=== PATIENT | female | born 1980 | race Caucasian/White ===

== ENCOUNTER 2017-01-10 18:01 | Inpatient (IN) | payer OTHER ==
[~2017-01-10] VITALS: Ht 157.5 cm; Wt 72.8 kg
--- NOTE | ~2017-01-10 | ST ---
[place], [place] EXERCISE STRESS TEST REPORT NAME: [facility]EN [id number] UNIT #: [id number] ROOM: 522 DOCTOR: MARELY LEE,PEEWEE BIRTHDATE: [birth year] DOS: 01/11/2017 TREADMILL STRESS TEST REFERRING PHYSICIAN: Dr. Galan. INDICATION: Central chest pain and bradycardia. The patient underwent standard Michael protocol stress testing. The patient's baseline EKG is sinus bradycardia with heart rate of 43 with blood pressure at rest of 118/70. The patient achieved a maximum heart rate of 169 with blood pressure of 156/71. The maximum heart rate of 169 represents 93% of maximum predicted. The patient exercised for total of 9 minutes on the treadmill. The patient had no new chest pain (she had atypical reproducible chest pain onset of exam.) The patient had no ischemic changes on the EKG nor did she have arrhythmia. SUMMARY OF FINDINGS: 1. Negative exercise treadmill stress. 2. Ellis Treadmill score of 9 portending a low risk prognosis. 3. Appropriate chronotropic competence for conduction of system. PEEWEE YAP MD CM:STRESS:EXERCISE STRESS TEST REPORT [id number] PEEWEE AYP MD
[~2017-01-10 18:01] MED LIST: ANAPROX DS550 MG PO; ANUSOL-HC25 MG RC; AUGMENTIN 875 M1 TAB PO; B COMPLETE1 EACH PO; B12100 MC1 PO; CLINDAMYCIN HC300 MG PO; CLINDAMYCIN150 MG PO; COMPAZINE10 MG PO; CYCLOBENZAPRINE10 MG PO; IBU800 MG PO; MACROBID100 M1 PO; MEDROL DOSEPAK4 MG PO; MOTRIN800 MG PO; MULTIVITAMIN FO1 CAP PO; Motrin,Rufen800 MG PO; PERCOCET 325 MG1 TA7 PO; PREDNISONE10 MG PO; PRILOSEC20 MG PO; PROZAC20 MG PO; TESSALON PERLE200 MG PO; THE MEDICINE S400 IU PO; VICODIN 5/500 505 MG PO; VIT D; VITAMIN D34000 UNIT PO; ZITHROMAX Z PA250 MG PO; ZOFRAN ODT4 MG SL
[2017-01-10 18:10] VITALS: BP 102/46
[2017-01-10 18:17] LABS: BASO % 0.4 % (0.0-1.0); EOS # 0.2 10*3/uL (0.0-0.4); EOS % 3.4 % (1.0-4.0); HEMOGLOBIN 11.3 g/dl (12.0-16.0); LYMPH # 2.1 10*3/uL (1.3-4.4); LYMPH % 43.2 % (27.0-41.0); MEAN CELL VOLUME 92.2 fl (81.0-99.0); MEAN CORPUSCULAR HGB 31.6 pg (27.0-31.0); MEAN CORPUSCULAR HGB CONC 34.2 g/dl (33.0-37.0); MEAN PLATELET VOLUME 11.9 fl (9.6-12.3); MONO # 0.4 10*3/uL (0.1-1.0); MONO % 8.8 % (3.0-9.0); NEUT # 2.1 10*3/uL (2.3-7.9); NEUT % 44.2 % (47.0-73.0); PLATELET COUNT AUTOMATED 133 10*3/uL (130-400); RED BLOOD COUNT 3.58 10*6/uL (4.10-5.10); RED CELL DISTRI WIDTH 11.9 % (0-14.5); WHITE BLOOD COUNT 4.8 10*3/uL (4.8-10.8)
[2017-01-10 18:34] LABS: ALBUMIN 3.5 gm/dl (3.1-4.5); ALKALINE PHOSPHATASE 48 U/L (45-117); BILIRUBIN, TOTAL 0.2 mg/dl (0.2-1.0); BUN 7 mg/dl (7-24); CARBON DIOXIDE 29 mmol/L (21-32); CHLORIDE 106 mmol/L (98-107); EST GLOM FILT AFRICAN AMERICAN > 60 ml/min; GLUCOSE 79 mg/dL (65-99); MAGNESIUM 1.9 mg/dL (1.5-2.1); POTASSIUM 3.8 mmol/L (3.5-5.1); SGOT/AST 12 IU/L (3-35); SGPT/ALT 17 U/L (12-78); SODIUM 138 mmol/L (136-145); TOTAL PROTEIN 6.6 gm/dL (6.4-8.2)
[2017-01-10 18:35] LABS: TROPONIN I < 0.015 ng/ml (<0.045)
[2017-01-10 19:00] VITALS: BP 97/60
[2017-01-10 19:30] VITALS: BP 92/65
[2017-01-10 20:30] VITALS: BP 94/44
[2017-01-10 21:30] VITALS: BP 108/69
[2017-01-11] VITALS (7 sets, daily range): BP systolic 90–110; BP diastolic 50–65
[2017-01-11 00:29] LABS: CKMB 0.6 ng/ml (0.5-3.6); CPK 57 U/L (26-192); TROPONIN I < 0.015 ng/ml (<0.045)
[2017-01-11 06:10] LABS: BASO % 0.5 % (0.0-1.0); EOS # 0.2 10*3/uL (0.0-0.4); EOS % 4.2 % (1.0-4.0); HEMATOCRIT 34.8 % (37.0-47.0); HEMOGLOBIN 11.6 g/dl (12.0-16.0); LYMPH # 1.8 10*3/uL (1.3-4.4); LYMPH % 46.9 % (27.0-41.0); MEAN CELL VOLUME 93.8 fl (81.0-99.0); MEAN CORPUSCULAR HGB 31.3 pg (27.0-31.0); MEAN CORPUSCULAR HGB CONC 33.3 g/dl (33.0-37.0); MEAN PLATELET VOLUME 11.8 fl (9.6-12.3); MONO # 0.4 10*3/uL (0.1-1.0); MONO % 9.1 % (3.0-9.0); NEUT # 1.5 10*3/uL (2.3-7.9); PLATELET COUNT AUTOMATED 121 10*3/uL (130-400); RED BLOOD COUNT 3.71 10*6/uL (4.10-5.10); RED CELL DISTRI WIDTH 11.9 % (0-14.5); WHITE BLOOD COUNT 3.8 10*3/uL (4.8-10.8)
[2017-01-11 06:17] LABS: CKMB 0.8 ng/ml (0.5-3.6); CPK 56 U/L (26-192)
[2017-01-11 06:21] LABS: TROPONIN I < 0.015 ng/ml (<0.045)
[2017-01-11 06:30] LABS: HEMOGLOBIN A1c 4.7 % (4.8-5.6)
[2017-01-11 06:38] LABS: BUN 7 mg/dl (7-24); CARBON DIOXIDE 28 mmol/L (21-32); CHLORIDE 109 mmol/L (98-107); CHOLESTEROL 156 mg/dL (<200); EST GLOM FILT AFRICAN AMERICAN > 60 ml/min; FREE T4 1.12 ng/dl (0.76-1.46); GLUCOSE 87 mg/dL (65-99); HDL CHOLESTEROL 61 mg/dl (40-60); LDL CHOLESTEROL 83 mg/dL (9-159); MAGNESIUM 1.8 mg/dL (1.5-2.1); PHOSPHOROUS 3.1 mg/dL (2.5-4.9); POTASSIUM 3.8 mmol/L (3.5-5.1); SODIUM 140 mmol/L (136-145); TRIGLYCERIDES 60 mg/dl (<150); VLDL CHOLESTEROL 12 mg/dL (6-40)
[2017-01-11 06:40] LABS: PROTHROMBIN TIME 10.7 SECONDS (9.0-12.4)
[2017-01-11 07:43] LABS: FOLIC ACID 14.13 ng/mL (>5.38)
[2017-01-11 12:26] LABS: CPK 58 U/L (26-192)
[2017-01-11 12:27] LABS: CKMB 0.8 ng/ml (0.5-3.6); TROPONIN I < 0.015 ng/ml (<0.045)
[2017-01-12] VITALS: BP 90/54
[2017-01-12 06:59] LABS: BASO % 0.5 % (0.0-1.0); EOS # 0.2 10*3/uL (0.0-0.4); EOS % 4.4 % (1.0-4.0); HEMATOCRIT 34.4 % (37.0-47.0); HEMOGLOBIN 11.5 g/dl (12.0-16.0); LYMPH # 1.5 10*3/uL (1.3-4.4); MEAN CELL VOLUME 93.2 fl (81.0-99.0); MEAN CORPUSCULAR HGB 31.2 pg (27.0-31.0); MEAN CORPUSCULAR HGB CONC 33.4 g/dl (33.0-37.0); MEAN PLATELET VOLUME 12.5 fl (9.6-12.3); MONO # 0.3 10*3/uL (0.1-1.0); MONO % 7.9 % (3.0-9.0); NEUT # 1.7 10*3/uL (2.3-7.9); NEUT % 44.9 % (47.0-73.0); PLATELET COUNT AUTOMATED 117 10*3/uL (130-400); RED BLOOD COUNT 3.69 10*6/uL (4.10-5.10); RED CELL DISTRI WIDTH 11.9 % (0-14.5); WHITE BLOOD COUNT 3.7 10*3/uL (4.8-10.8)
[2017-01-12 07:33] LABS: ALBUMIN 3.2 gm/dl (3.1-4.5); BILIRUBIN, TOTAL 0.2 mg/dl (0.2-1.0); BUN 7 mg/dl (7-24); CARBON DIOXIDE 25 mmol/L (21-32); CHLORIDE 110 mmol/L (98-107); EST GLOM FILT AFRICAN AMERICAN > 60 ml/min; GLUCOSE 83 mg/dL (65-99); POTASSIUM 3.7 mmol/L (3.5-5.1); SGOT/AST 12 IU/L (3-35); SGPT/ALT 21 U/L (12-78); SODIUM 140 mmol/L (136-145); TOTAL PROTEIN 6.1 gm/dL (6.4-8.2)
[2017-01-12 07:34] LABS: ALKALINE PHOSPHATASE 42 U/L (45-117)
[2017-01-12 08:00] VITALS: BP 102/52; BP 104/66
[2017-01-12 12:00] VITALS: BP 101/59
[2017-01-12] MEDS ORDERED: PANTOPRAZOLE SO40 MG PO (14:42)
[2017-01-12 16:00] VITALS: BP 101/57
== END 2017-01-12 18:21 | disposition home or self-care (01) | DRG 392 ==
LOC: ED 18:01 → EDHOLD 19:53 → 5E 19:53
PROVIDERS: Emergency Medicine; Family Medicine; Internal Medicine Hospice and Palliative Medicine
PROC: 4A02XM4 Measurement of Cardiac Total Activity, External Approach (ICD-10-PCS; principal; 2017-01-11)
DX: K21.9 Gastro-esophageal reflux disease without esophagitis (principal); D61.818 Other pancytopenia; I95.9 Hypotension, unspecified; E44.0 Moderate protein-calorie malnutrition; E83.51 Hypocalcemia; R00.1 Bradycardia, unspecified; D64.9 Anemia, unspecified; E55.9 Vitamin D deficiency, unspecified; Z83.3 Family history of diabetes mellitus; Z82.49 Family history of ischemic heart disease and other diseases of the circulatory system; Z88.8 Allergy status to other drugs, medicaments and biological substances; Z68.25 Body mass index [BMI] 25.0-25.9, adult; F41.9 Anxiety disorder, unspecified

== ENCOUNTER 2017-09-29 13:17 | Emergency (ER) | payer OTHER ==
[~2017-09-29] VITALS: Ht 157.4 cm; Wt 71.7 kg
--- NOTE | ~2017-09-29 | EKG ---
[place], [place] ELECTROCARDIOGRAM REPORT NAME: GIGI NGUYEN UNIT #: [id number] ROOM: DOCTOR: MEENAKSHI LEE,ALICIA BIRTHDATE: [birth year] DOS: 09/29/2017 TIME: 1353. IMPRESSION: 1. Sinus rhythm with sinus arrhythmia. 2. Nonspecific ST-T changes. 3. Normal QT interval. ALICIA ARRIETA MD CM:EKGRPT:ELECTROCARDIOGRAM REPORT [id number] ALICIA ARRIETA MD
[~2017-09-29 13:17] MED LIST changes: +PANTOPRAZOLE SO40 MG PO
[2017-09-29 13:32] VITALS: BP 126/78
[2017-09-29] MEDS ORDERED: DIFLUCAN150 MG PO (15:01)
[2017-09-29] MEDS ORDERED: ROBITUSSIN DM 105 ML PO (15:21)
[2017-09-29] MEDS ORDERED: AUGMENTIN 875875 MG PO (15:21)
== END 2017-09-29 18:49 | disposition home or self-care (01) ==
LOC: ED 13:17
DX: J01.90 Acute sinusitis, unspecified (principal); Z90.89 Acquired absence of other organs; Z88.6 Allergy status to analgesic agent

== ENCOUNTER 2018-11-07 06:59 | Emergency (ER) | payer SELFPAY ==
[~2018-11-07] VITALS: Ht 160 cm; Wt 76.2 kg
[~2018-11-07 06:59] MED LIST changes: +AUGMENTIN 875875 MG PO; +DIFLUCAN150 MG PO; +PRILOSEC20 M1 PO; +ROBITUSSIN DM 105 ML PO; +ZYRTEC10 MG PO; +Zofran4 MG PO
[2018-11-07 07:00] VITALS: BP 129/77
[2018-11-07] MEDS ORDERED: TAMIFLU 75MG CA75 MG PO (08:08)
[2018-11-07] MEDS ORDERED: PROVENTIL HFA6.7 GM INH (18:46)
== END 2018-11-07 07:58 | disposition home or self-care (01) ==
LOC: ED 06:59
DX: J10.1 Influenza due to other identified influenza virus with other respiratory manifestations (principal); Z88.8 Allergy status to other drugs, medicaments and biological substances

== ENCOUNTER 2018-11-07 16:22 | Emergency (ER) | payer SELFPAY ==
[~2018-11-07] VITALS: Ht 157.4 cm; Wt 76.2 kg
--- NOTE | ~2018-11-07 | EKG ---
[place], [place] ELECTROCARDIOGRAM REPORT NAME: GIGI NGUYEN UNIT #: [id number] ROOM: DOCTOR: EPIPHANY DRAFT REPORT BIRTHDATE: [birth year] [facility] Test Date: 2018-11-07 Test Time: 17:01:23 Pat Name: GIGI NGUYEN Department: Room: Gender: F Gang Miner: : 1980 Requested By: JOSUE RICH DNP Order Number: [id number] Reading MD: Measurements Intervals Blessing Rate: 74 P: 60 NC: 166 QRS: 59 QRSD: 79 T: 30 QT: 370 QTc: 411 Interpretive Statements Sinus rhythm Borderline T abnormalities, anterior leads Baseline wander in lead(s) V1 No previous ECG available for comparison CM:EKGRPT:ELECTROCARDIOGRAM REPORT 1701 1402 [facility] JOSUE RICH DNP
[~2018-11-07 16:22] MED LIST changes: +TAMIFLU 75MG CA75 MG PO
[2018-11-07 16:24] VITALS: BP 127/80
[2018-11-07 17:18] LABS: BASO % 0.5 % (0.0-1.0); EOS # 0.2 10*3/uL (0.0-0.4); EOS % 3.8 % (1.0-4.0); HEMOGLOBIN 13.1 g/dl (12.0-16.0); LYMPH # 1.2 10*3/uL (1.3-4.4); MEAN CELL VOLUME 92.9 fl (81.0-99.0); MEAN CORPUSCULAR HGB 31.2 pg (27.0-31.0); MEAN CORPUSCULAR HGB CONC 33.6 g/dl (33.0-37.0); MEAN PLATELET VOLUME 10.8 fl (9.6-12.3); MONO # 0.4 10*3/uL (0.1-1.0); MONO % 10.3 % (3.0-9.0); NEUT # 2.5 10*3/uL (2.3-7.9); NEUT % 58.2 % (47.0-73.0); PLATELET COUNT AUTOMATED 106 10*3/uL (130-400); RED CELL DISTRI WIDTH 11.8 % (0-14.5); WHITE BLOOD COUNT 4.3 10*3/uL (4.8-10.8)
[2018-11-07 17:40] LABS: ALBUMIN 3.5 gm/dl (3.1-4.5); ALKALINE PHOSPHATASE 68 U/L (45-117); BUN 7 mg/dl (7-24); CHLORIDE 105 mmol/L (98-107); CREATININE 0.74 mg/dL (0.55-1.02); POTASSIUM 3.5 mmol/L (3.5-5.1); SGOT/AST 21 IU/L (3-35); SGPT/ALT 39 U/L (12-78); SODIUM 141 mmol/L (136-145); TOTAL PROTEIN 7.1 gm/dL (6.4-8.2)
[2018-11-07] MEDS ORDERED: PROVENTIL HFA6.7 GM INH (18:46)
== END 2018-11-07 18:45 | disposition home or self-care (01) ==
LOC: ED 16:22
PROVIDERS: Nurse Practitioner Family
DX: R06.02 Shortness of breath (principal); T37.5X5A Adverse effect of antiviral drugs, initial encounter; R53.81 Other malaise; Z88.8 Allergy status to other drugs, medicaments and biological substances; Y92.89 Other specified places as the place of occurrence of the external cause

== ENCOUNTER 2020-03-22 09:59 | Emergency (ER) | payer SELFPAY ==
[~2020-03-22] VITALS: Ht 157.4 cm; Wt 67.1 kg
[~2020-03-22 09:59] MED LIST changes: +PROVENTIL HFA6.7 GM INH
[2020-03-22 10:04] VITALS: BP 102/71
[2020-03-22 10:35] LABS: CLARITY SL CLOUDY (CLEAR); COLOR YELLOW (YELLOW); GLUCOSE NEGATIVE (NEGATIVE)
[2020-03-22 10:36] LABS: BILIRUBIN 1+ (NEGATIVE); BLOOD 1+ (NEGATIVE); KETONE 3+ (NEGATIVE); LEUKO ESTERASE 1+ (NEGATIVE); NITRITE NEGATIVE (NEGATIVE); UROBILINOGEN 0.2 E.U./dl (0.2-1.0)
[2020-03-22 10:39] LABS: EOS % 0.3 % (1.0-4.0); LYMPH # 0.8 10*3/uL (1.3-4.4); LYMPH % 26.3 % (27.0-41.0); MEAN CELL VOLUME 93.9 fl (81.0-99.0); MEAN CORPUSCULAR HGB 30.8 pg (27.0-31.0); MEAN CORPUSCULAR HGB CONC 32.8 g/dl (33.0-37.0); MEAN PLATELET VOLUME 12.4 fl (9.6-12.3); MONO # 0.4 10*3/uL (0.1-1.0); MONO % 14.9 % (3.0-9.0); NEUT # 1.7 10*3/uL (2.3-7.9); NEUT % 58.5 % (47.0-73.0); PLATELET COUNT AUTOMATED 62 10*3/uL (130-400); RED BLOOD COUNT 4.26 10*6/uL (4.10-5.10); RED CELL DISTRI WIDTH 11.9 % (0-14.5); WHITE BLOOD COUNT 2.9 10*3/uL (4.8-10.8)
[2020-03-22 10:52] LABS: ALBUMIN 3.7 gm/dl (3.1-4.5); ALKALINE PHOSPHATASE 46 U/L (45-117); BUN 4 mg/dl (7-24); CHLORIDE 109 mmol/L (98-107); CREATININE 0.69 mg/dL (0.55-1.02); POTASSIUM 3.7 mmol/L (3.5-5.1); SGOT/AST 19 IU/L (3-35); SGPT/ALT 24 U/L (12-78); SODIUM 139 mmol/L (136-145); TOTAL PROTEIN 6.8 gm/dL (6.4-8.2)
[2020-03-22 10:56] LABS: BACTERIA 2+; EPITHELIAL CELLS 16-20; MUCOUS TRACE
[2020-03-22] MEDS ORDERED: KEFLEX500 M1 PO (12:35)
== END 2020-03-22 12:51 | disposition home or self-care (01) ==
LOC: ED 09:59
PROVIDERS: Nurse Practitioner
DX: N39.0 Urinary tract infection, site not specified (principal); B34.9 Viral infection, unspecified; Z88.8 Allergy status to other drugs, medicaments and biological substances; Z79.899 Other long term (current) drug therapy; Z20.828 Contact with and (suspected) exposure to other viral communicable diseases

== ENCOUNTER 2021-03-30 16:46 | Emergency (ER) | payer SELFPAY ==
[~2021-03-30] VITALS: Ht 160 cm; Wt 59.0 kg
[~2021-03-30 16:46] MED LIST changes: +KEFLEX500 M1 PO
[2021-03-30 16:51] VITALS: BP 123/72
[2021-03-30 17:43] LABS: BASO % 0.3 % (0.0-1.0); EOS # 0.1 10*3/uL (0.0-0.4); EOS % 1.5 % (1.0-4.0); LYMPH # 1.8 10*3/uL (1.3-4.4); LYMPH % 26.7 % (27.0-41.0); MEAN CELL VOLUME 95.4 fl (81.0-99.0); MEAN CORPUSCULAR HGB 31.5 pg (27.0-31.0); MEAN CORPUSCULAR HGB CONC 33.1 g/dl (33.0-37.0); MEAN PLATELET VOLUME 11.4 fl (9.6-12.3); MONO # 0.5 10*3/uL (0.1-1.0); MONO % 7.1 % (3.0-9.0); NEUT # 4.2 10*3/uL (2.3-7.9); NEUT % 64.2 % (47.0-73.0); PLATELET COUNT AUTOMATED 148 10*3/uL (130-400); RED BLOOD COUNT 4.09 10*6/uL (4.10-5.10); RED CELL DISTRI WIDTH 12.5 % (0-14.5); WHITE BLOOD COUNT 6.6 10*3/uL (4.8-10.8)
[2021-03-30 18:00] LABS: ALBUMIN 3.9 gm/dl (3.1-4.5); ALKALINE PHOSPHATASE 48 U/L (45-117); BUN 6 mg/dl (7-24); CHLORIDE 108 mmol/L (98-107); CREATININE 0.58 mg/dL (0.55-1.02); SGOT/AST 7 IU/L (3-35); SGPT/ALT 16 U/L (12-78); SODIUM 138 mmol/L (136-145); TOTAL PROTEIN 7.2 gm/dL (6.4-8.2)
[2021-03-30 18:03] LABS: B-hCG (QUALITATIVE) NEGATIVE (NEGATIVE)
== END 2021-03-30 17:49 | disposition home or self-care (01) ==
LOC: ED 16:46
PROVIDERS: Physician Assistant
DX: N92.0 Excessive and frequent menstruation with regular cycle (principal); Z88.8 Allergy status to other drugs, medicaments and biological substances; Z79.899 Other long term (current) drug therapy; Z79.2 Long term (current) use of antibiotics; Z90.89 Acquired absence of other organs

== ENCOUNTER 2022-03-24 21:48 | Emergency (ER) | payer OTHER ==
[~2022-03-24] VITALS: Ht 167.6 cm; Wt 59.0 kg
[2022-03-24 22:14] VITALS: BP 111/73
[2022-03-24] MEDS ORDERED: NAPROXEN250 MG PO (23:16)
== END 2022-03-24 23:28 | disposition home or self-care (01) ==
LOC: ED 21:48
DX: S60.221A Contusion of right hand, initial encounter (principal); Z88.8 Allergy status to other drugs, medicaments and biological substances; Z90.89 Acquired absence of other organs; W20.8XXA Other cause of strike by thrown, projected or falling object, initial encounter; Y93.89 Activity, other specified; Y92.89 Other specified places as the place of occurrence of the external cause; Y99.8 Other external cause status

== ENCOUNTER → 2022-12-20 | Outpatient (CLI) | payer BC, OTHER ==
[~2022-12-20] MED LIST changes: +NAPROXEN250 MG PO
[2022-12-20 10:30] LABS: MEAN CELL VOLUME 96.9 fl (81.0-99.0); RED BLOOD COUNT 4.13 10*6/uL (4.10-5.10); RED CELL DISTRI WIDTH 12.2 % (0-14.5); WHITE BLOOD COUNT 3.8 10*3/uL (4.8-10.8)
[2022-12-20 11:26] LABS: ALKALINE PHOSPHATASE 35 U/L (46-116); CHLORIDE 112 mmol/L (98-107); CHOLESTEROL 176 mg/dL (<200); FREE T4 1.05 ng/dl (0.89-1.76); LDL CHOLESTEROL 97 mg/dL (9-159); POTASSIUM 4.5 mmol/L (3.4-5.1); SGPT/ALT 11 U/L (10-49); THYROID STIM HORMONE (HS) 2.299 uIU/ml (0.550-4.780); TOTAL PROTEIN 6.6 gm/dL (6.0-8.0); TRIGLYCERIDES 79 mg/dl (<150)
[2022-12-20 11:28] LABS: BUN < 5 mg/dl (9-23)
[2022-12-20 11:50] LABS: VITAMIN D, 25-HYDROXY 18.6 ng/mL (30-100)
== END | disposition home or self-care (01) ==
LOC: LAB 10:09
PROVIDERS: ATTEND Family Medicine
DX: E55.9 Vitamin D deficiency, unspecified (principal); R53.83 Other fatigue; D64.9 Anemia, unspecified

== ENCOUNTER → 2023-08-11 | Outpatient (CLI) | payer BC ==
[2023-08-11 08:12] LABS: HEMATOCRIT 40.1 % (37.0-47.0); MEAN CELL VOLUME 95.9 fl (81.0-99.0); MEAN CORPUSCULAR HGB 31.8 pg (27.0-31.0); MEAN CORPUSCULAR HGB CONC 33.2 g/dl (33.0-37.0); MEAN PLATELET VOLUME 10.6 fl (9.6-12.3); RED BLOOD COUNT 4.18 10*6/uL (4.10-5.10); RED CELL DISTRI WIDTH 11.6 % (0-14.5)
== END | disposition home or self-care (01) ==
LOC: LAB 07:45
PROVIDERS: ATTEND Nurse Practitioner Family
DX: R53.82 Chronic fatigue, unspecified (principal)

== ENCOUNTER → 2024-01-28 | Outpatient (CLI) | payer BC | END | disposition home or self-care (01) | LOC: RAD 10:31 | PROVIDERS: ATTEND Chiropractor | DX: M54.50 Low back pain, unspecified (principal) ==

== ENCOUNTER → 2024-02-01 | Outpatient (CLI) | payer BC | END | disposition home or self-care (01) | LOC: RAD 11:55 | PROVIDERS: ATTEND Chiropractor | DX: M54.2 Cervicalgia (principal) ==

== ENCOUNTER → 2024-02-08 | Outpatient (CLI) | payer BC ==
[2024-02-08 15:23] LABS: HEMATOCRIT 39.7 % (37.0-47.0); MEAN CELL VOLUME 94.5 fl (81.0-99.0); MEAN CORPUSCULAR HGB 32.1 pg (27.0-31.0); MEAN PLATELET VOLUME 11.5 fl (9.6-12.3); RED BLOOD COUNT 4.2 10*6/uL (4.10-5.10); RED CELL DISTRI WIDTH 11.8 % (0-14.5); WHITE BLOOD COUNT 5.5 10*3/uL (4.8-10.8)
[2024-02-08 16:09] LABS: ALKALINE PHOSPHATASE 58 U/L (46-116); BUN 9 mg/dl (9-23); CHLORIDE 107 mmol/L (98-107); CHOLESTEROL 239 mg/dL (<200); FREE T4 1.17 ng/dl (0.89-1.76); LDL CHOLESTEROL 147 mg/dL (9-159); POTASSIUM 3.9 mmol/L (3.4-5.1); TOTAL PROTEIN 7.3 gm/dL (6.0-8.0); TRIGLYCERIDES 115 mg/dl (<150)
[2024-02-08 16:13] LABS: SGPT/ALT < 7 U/L (5-49)
== END | disposition home or self-care (01) ==
LOC: LAB 15:04
PROVIDERS: ATTEND Family Medicine
DX: M54.2 Cervicalgia (principal); M54.50 Low back pain, unspecified; R51.9 Headache, unspecified; R53.1 Weakness; R20.2 Paresthesia of skin; R20.0 Anesthesia of skin

== ENCOUNTER 2024-11-27 07:24 | Emergency (ER) | payer BC ==
[~2024-11-27] VITALS: Wt 63.5 kg
[2024-11-27 07:35] VITALS: BP 105/76
[2024-11-27] MEDS ORDERED: Dexamethasone Sodium Phospha 20 MG/5 ML VIAL IM ONE (09:30)
[2024-11-27] MEDS ORDERED: MEDROL DOSEPAK4 MG PO (09:33)
== END 2024-11-27 09:37 | disposition home or self-care (01) ==
LOC: ED 07:24
DX: B34.9 Viral infection, unspecified (principal); Z20.822 Contact with and (suspected) exposure to COVID-19; Z88.8 Allergy status to other drugs, medicaments and biological substances; Z90.89 Acquired absence of other organs

== ENCOUNTER → 2025-04-24 | Outpatient (CLI) | payer BC | END | disposition home or self-care (01) | LOC: LAB 14:05 | PROVIDERS: ATTEND Family Medicine | DX: Z02.1 Encounter for pre-employment examination (principal) ==